=== PATIENT | female | born 1945 | race Caucasian/White ===

== ENCOUNTER 2017-04-11 08:57 | Outpatient (CLI) | payer MEDICARE | END 2017-04-11 08:58 | disposition home or self-care (01) | LOC: BICMAMMO 08:57 | PROVIDERS: ATTEND Family Medicine | DX: M81.0 Age-related osteoporosis without current pathological fracture (principal); R06.2 Wheezing; R04.2 Hemoptysis; R91.8 Other nonspecific abnormal finding of lung field | CPT/HCPCS: 71250; 77080 ==

== ENCOUNTER 2018-01-21 15:48 | Outpatient (CLI) | payer MEDICARE | END 2018-01-21 15:49 | disposition home or self-care (01) | LOC: BICMAMMO 15:48 | PROVIDERS: ATTEND Family Medicine | DX: Z12.31 Encounter for screening mammogram for malignant neoplasm of breast (principal) | CPT/HCPCS: 77063; 77067 ==

== ENCOUNTER 2019-01-11 16:39 | Observation (INO) | payer MEDICARE ==
[2019-01-11 17:27] LABS: #Basophils 0.1 thou/uL (0.0-0.2); #Eosinphils 0.3 thou/uL (0.0-0.7); #Lymphocytes 2.1 thou/uL (1.20-3.40); #Monocytes 0.7 thou/uL (0.11-0.59); #Neutrophils 6.9 thou/uL (1.40-6.50); %Lymphocytes 20.7 % (21.0-51.0); %Monocytes 6.8 % (0.0-10.0); %Neutrophils 68.6 % (42.0-75.0); Hemoglobin 14.7 g/dL (12.0-16.0); Mean Corpuscular HGB CONC 32.5 g/dL (32.0-36.0); Mean Corpuscular Hemoglobin 30.8 pg (27.0-31.0); Mean Corpuscular Volume 94.7 fL (78.0-98.0); Mean Platelet Volume 8.2 fL (7.4-10.4); Platelet Count 354 thou/uL (130-400); RBC Distribution Width 12.5 % (11.5-14.5); Red Blood Cell (RBC) Count 4.76 mill/uL (4.20-5.40); White Blood Cell (WBC) Count 10.1 thou/uL (4.8-10.8)
--- NOTE | 2019-01-11 17:28 | RAD ---
Exam: Chest one view HISTORY:Syncope Comparison: 09/28/2016 FINDINGS: Cardiac silhouette: Normal Aorta: Unremarkable Pulmonary vessels: Normal Costophrenic angles: Clear LUNGS: No masses or consolidation. Chronic changes along parenchyma. Pneumothorax: None Osseous abnormalities: None IMPRESSION: No acute cardiopulmonary process.
[2019-01-11 17:56] LABS: ALT (SGPT) 14 U/L (8-55); AST (SGOT) 18 U/L (5-34); Albumin 4.2 g/dL (3.4-4.8); Alkaline Phosphatase 105 U/L (40-110); Anion Gap 15 mmol/L (10-20); BUN (Urea Nitrogen) 15 mg/dL (9.8-20.1); Bilirubin, Total 0.4 mg/dL (0.2-1.2); CK (CPK) 69 U/L (29-168); Calc. Creatinine Clearance 0 mL/min (70-130); Calcium 9.7 mg/dL (7.8-10.44); Carbon Dioxide 24 mmol/L (23-31); Chloride 104 mmol/L (98-107); Estimated GFR-MDRD 63; Globulin 2.6 g/dL (2.4-3.5); Glucose 119 mg/dL (83-110); Potassium 3.7 mmol/L (3.5-5.1); Protein, Total 6.8 g/dL (6.0-8.3); Sodium 139 mmol/L (136-145)
[2019-01-11] MEDS ORDERED: Aspirin Chewable 81 MG TAB ONE (20:06)
[2019-01-11 20:56] LABS: Troponin I 0.017 ng/mL (< 0.028)
[2019-01-11 21:17] VITALS: BMI 34.4
[2019-01-11] MEDS ORDERED: Acetaminophen 325 MG TAB PO PRN (23:01)
[2019-01-11] MEDS ORDERED: cloNIDine 0.1 MG TAB PO PRN ×2 (23:01→23:06)
[2019-01-11] MEDS ORDERED: hydrALAZINE 20 MG/ML VIAL SLOW IVP PRN (23:01)
[2019-01-12] LABS: Troponin I 0.014 ng/mL (< 0.028)
--- NOTE | 2019-01-12 03:57 | HP ---
PRIMARY CARE PHYSICIAN: Dr. Lynn Pitts, but she says she recently retired. CHIEF COMPLAINT: Feeling dizzy and nauseated. HISTORY OF PRESENT ILLNESS: Ms. Wise is a very pleasant 73-year-old female who has a history of hypertension. She says that ever since October, her blood pressure has been "out of whack." She says that it has even been worse in the last few days. She says that she has noticed that she has been feeling nauseated and lightheaded and that her blood pressure is off the wall. She says that today it was high as 201/101. She says that she also woke up with her heart racing and she had been going to a local urgent care type clinics and says that she had been prescribed clonidine back in September. She says she has only had to use it about 4-6 times since then. She also noticed that she has been coughing a lot and that sometimes she coughs so hard that she is gagging and will throw up and because of these symptoms, she came to the ER for evaluation. She says that when she came to the ER, her blood pressure was initially high and that it took a while for it to come under control. In our records, her blood pressure was 149/107 and currently her blood pressure is 126/74, and she feels fine. She says that she has been on the lisinopril for at least 10 years and has not had a medication change recently. She also noted some blurred vision off and on, but otherwise no other complaints. REVIEW OF SYSTEMS: All systems were reviewed and are negative except for that mentioned in the History of Present Illness. PAST MEDICAL HISTORY: Significant for hypertension and rheumatoid arthritis. PAST SURGICAL HISTORY: She has had carpal tunnel surgery; bilateral nodules removed from her elbows, it sounds like rheumatoid nodules. She also has had a tonsillectomy. ALLERGIES: NO KNOWN DRUG ALLERGIES. SOCIAL HISTORY: She is a nonsmoker and she occasionally drinks some wine. 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 She is . She does not have any children, and she would like to be a do not resuscitate. FAMILY HISTORY: Her mother had heart disease and ovarian cancer, brother had diabetes and heart disease, and a sister had lymphoma. CURRENT MEDICATIONS: Include; 1. Zaleplon or Sonata 10 mg at bedtime. 2. Lisinopril/hydrochlorothiazide 20/12.5 once daily. 3. Vascepa 1 capsule twice a day. 4. Drisdol 1 capsule every 7 days. 5. Clonidine 0.1 at bedtime as needed. 6. Orencia 250 mg IV as directed. PHYSICAL EXAMINATION: GENERAL: She is alert and oriented. She appears to be in no acute distress. She is well developed and well nourished. She appears younger than her stated age. VITAL SIGNS: Blood pressure was 126/74, heart rate 76, respiratory rate of 15, temperature is 98.4, O2 sats 95% on room air. HEENT: Pupils are equal, round, and reactive. Extraocular muscles are intact. Sclerae anicteric. Throat; no erythema, no exudates. NECK: No adenopathy, no bruits. LUNGS: Clear to auscultation. There was no wheezing, no rales, no rhonchi. CARDIOVASCULAR: She had a normal S1, S2. I did not appreciate an S3 or S4. No murmurs, clicks, or rubs. ABDOMEN: Obese. It is soft, nontender, and nondistended. Positive for bowel sounds. No rebound. No guarding. No organomegaly. EXTREMITIES: There is no clubbing or cyanosis. No edema. No joint effusions or any erythema or warmth. NEUROLOGIC: Essentially nonfocal. SKIN AND INTEGUMENT: No skin changes, no rash; however, on her left lower extremity, she did have a fairly large almost golf ball-sized roundish mass on the dorsum of her foot and she does have some hammertoe deformities as well as bilateral bunion deformities on the feet. LABORATORY DATA AND IMAGING: Her chemistries are essentially negative with the sodium of 139, potassium 3.7, chloride is 104, CO2 is 24, BUN of 15, creatinine 0.88, and glucose is 119. Troponin is 0.013. White blood cell count is 10.1, hemoglobin 14.7, hematocrit is 45.1, and platelet count is 354. She had a chest x-ray in which there was no evidence of any airspace disease and heart size was normal. On her EKG, it was sinus rhythm, the rate was 93. She had a biphasic T-wave in V2 and some poor R-wave progression, but otherwise no other abnormalities. ASSESSMENT: 1. This is a pleasant 73-year-old female who presents to the emergency room with multiple complaints, all seemingly associated with her blood pressure medications. She has this cough which become so severe that she has nausea and gets choked. I suspect this could be related to the BEBETO inhibitor, and it appears as if she is not getting adequate antihypertensive effect. For this reason, we will go ahead and discontinue the lisinopril and place her on Benicar, olmesartan in its place. She does have a diuretic with her lisinopril and therefore we will continue the diuretic use as well and I suspect that if she is stable during most of the day tomorrow, then she could be discharged home and have close followup with Dr. Morrison whom she had already scheduled an appointment with. 2. Rheumatoid arthritis. This appears to be clinically stable and continue her medications as had been outlined by Dr. Griffith. Job ID: [id number]
[2019-01-12] MEDS ORDERED: Hydrochlorothiazide 25 MG TAB PO SCH (09:00)
[2019-01-12] MEDS ORDERED: Losartan 25 MG TAB PO SCH (09:00)
[2019-01-12] MEDS ORDERED: ICOSAPENT ETHYL PO SCH (09:00)
[2019-01-12 11:57] VITALS: BP 127/71; TEMP 98.4
--- NOTE | 2019-01-12 21:01 | DIS ---
DATE OF ADMISSION: 01/11/2019 DATE OF DISCHARGE: 01/12/2019 DISCHARGE DISPOSITION: Home. FOLLOWUP: Follow up with new PCP, Dr. Jennifer Durand, in 1 to 2 weeks. Please note, the patient has seen Dr. Pitst in the past, who recently retired. CODE STATUS: Do not resuscitate. DISCHARGE MEDICATION: Lisinopril/hydrochlorothiazide was changed to Benicar HCT 20/12.5 daily. All other home medications were left unchanged. DIAGNOSTIC TESTS: Creatinine 0.88. Troponin was negative. Chest x-ray was negative for infiltrate. BRIEF HOSPITAL COURSE: The patient is a 73-year-old female with hypertension, presented to the hospital with generalized weakness, dizziness along with nausea. Her blood pressure at home was 201/101. She also has been coughing a lot recently. Please refer to the history and physical dated December,, by Dr. Comer for further details. The patient was admitted to the hospital with a diagnosis of generalized weakness. According to the admitting PCP, her symptoms were probably secondary to BEBETO inhibitor induced cough. Lisinopril has been changed to Benicar HCT. She has a followup with Dr. Morrison in next 1 to 2 weeks. She appears stable for discharge. She denies any dizziness, nausea, or lightheadedness at this time. Her blood pressure remains stable. FINAL DIAGNOSES: 1. Generalized weakness, multifactorial. 2. Hypertensive urgency on admission. 3. BEBETO inhibitor induced cough. 4. Rheumatoid arthritis. 5. Chronic kidney disease stage 2. 6. Obesity with a body mass index of 34.5. PLAN: Plan of care was discussed with the patient in detail. She stated understanding. Job ID: [id number]
[2019-01-18] MEDS ORDERED: Ergocalciferol 1.25 MG(50,000 UNITS) CAP PO SCH (09:00)
== END 2019-01-12 15:42 | disposition home or self-care (01) ==
LOC: SCSER 16:39 → 2SW 18:10
PROVIDERS: ADMIT Internal Medicine; ATTEND Internal Medicine
DX: R53.1 Weakness (principal); R42 Dizziness and giddiness; R11.0 Nausea; I16.1 Hypertensive emergency; I12.9 Hypertensive chronic kidney disease with stage 1 through stage 4 chronic kidney disease, or unspecified chronic kidney disease; N18.2 Chronic kidney disease, stage 2 (mild); M06.9 Rheumatoid arthritis, unspecified; R05 Cough; T46.4X5A Adverse effect of angiotensin-converting-enzyme inhibitors, initial encounter; E66.9 Obesity, unspecified; Z68.34 Body mass index [BMI] 34.0-34.9, adult; Z66 Do not resuscitate; Z79.899 Other long term (current) drug therapy
CPT/HCPCS: 36415; 71045; 80053; 82550; 84484; 85025; 93005; G0378

== ENCOUNTER 2019-05-25 11:55 | Outpatient (CLI) | payer MEDICARE ==
--- NOTE | 2019-05-25 12:34 | RAD ---
EXAM: CHEST TWO VIEWS 05/25/2019 12:30 PM HISTORY: Cough COMPARISON: May 16, 2019 FINDINGS: Lungs: There is new airspace consolidation the left lower lobe. Chronic lung changes otherwise are s table. Heart: Mild cardiomegaly is stable Pulmonary Vessels: Normal. Costophrenic Angles: Clear. Pneumothorax: None. Osseous Structures: Intact. Additional Findings: None. IMPRESSION: Left lower lobe airspace consolidation suspicious for pneumonia. Recommend radiographic follow to res olution.
== END 2019-05-25 11:56 | disposition home or self-care (01) ==
LOC: BICRAD 11:55
DX: R05 Cough (principal); R50.9 Fever, unspecified; R06.02 Shortness of breath; D84.9 Immunodeficiency, unspecified
CPT/HCPCS: 36415; 71046; 80053; 85025

== ENCOUNTER 2019-06-02 11:09 | Outpatient (CLI) | payer MEDICARE ==
--- NOTE | 2019-06-02 11:27 | RAD ---
EXAM: Chest PA and lateral: HISTORY: Patient has fluid 3 1/2 weeks ago. Cough. COMPARISON: 05/25/2019 FINDINGS: Heart: Normal cardiac silhouette Aorta: There is sclerosis of the aortic knob Pulmonary vessels: Normal Costophrenic angles: Costophrenic angles are clear. Lungs: Obscuration left hemidiaphragm due to left lower lobe infiltrate or atelectasis. Additional ch ronic changes of the lung parenchyma. Pneumothorax: No pneumothorax Osseous structures: No osseous abnormalities IMPRESSION: Obscuration left hemidiaphragm due to atelectasis or infiltrate. Continued surveillance is kourtney [facility]
== END 2019-06-02 11:10 | disposition home or self-care (01) ==
LOC: BICRAD 11:09
DX: J18.9 Pneumonia, unspecified organism (principal); D84.9 Immunodeficiency, unspecified; R50.9 Fever, unspecified; R05 Cough; R06.02 Shortness of breath; J98.6 Disorders of diaphragm
CPT/HCPCS: 36415; 71046; 80053; 85025

== ENCOUNTER 2019-06-09 10:22 | Outpatient (CLI) | payer MEDICARE ==
--- NOTE | 2019-06-09 10:34 | RAD ---
EXAM: Two views chest PROVIDED CLINICAL HISTORY: Cough. Follow-up pneumonia. COMPARISON: 06/02/2019 FINDINGS: Cardiac silhouette and pulmonary vasculature are within normal limits. Linear scarring is again seen at the left lung base with the nodular density at the left lung base related to calcified granuloma which was seen on prior CT thorax on 04/11/2017 as well as on prior chest x-ray. No consolid ation or pleural fluid is seen. Chest is overall stable compared to prior exam. IMPRESSION: 1. No acute cardiopulmonary process. 2. Chronic changes left lung base.
== END 2019-06-09 10:23 | disposition home or self-care (01) ==
LOC: BICRAD 10:22
DX: J18.9 Pneumonia, unspecified organism (principal); R05 Cough; D84.9 Immunodeficiency, unspecified
CPT/HCPCS: 71046

== ENCOUNTER 2020-01-27 12:29 | Outpatient (CLI) | payer MEDICARE ==
--- NOTE | 2020-01-27 13:16 | RAD ---
XR Knee Rt 2 View HISTORY: Bilateral primary osteoarthritis of knee FINDINGS: No fracture or dislocation is identified. Tricompartmental osteophyte formation and joint space narro wing is present. Chondrocalcinosis is seen. IMPRESSION: Right knee osteoarthritis
--- NOTE | 2020-01-27 13:17 | RAD ---
XR Knee Lt 2 View HISTORY: Bilateral primary osteoarthritis of knee FINDINGS: No fracture or dislocation is identified.Tricompartmental osteophyte formation and joint space narrow ing is present. Chondrocalcinosis is seen. IMPRESSION: Left knee osteoarthritis
== END 2020-01-27 12:30 | disposition home or self-care (01) ==
LOC: BICRAD 12:29
PROVIDERS: ATTEND Internal Medicine Rheumatology
DX: M17.0 Bilateral primary osteoarthritis of knee (principal)

== ENCOUNTER 2020-04-04 14:10 | Outpatient (CLI) | payer MEDICARE ==
--- NOTE | 2020-04-04 15:01 | MMO ---
Bilateral MAMMO Bilat Screen [facility]. CLINICAL HISTORY: Patient is 74 years old and is seen for screening. The patient has no family history of breast cancer. The patient has no personal history of cancer. VIEWS: The views performed were: bilateral craniocaudal with tomosynthesis and bilateral mediolateral oblique with tomosynthesis. FILMS COMPARED: The present examination has been compared to prior imaging studies performed at [facility] on 05/03/2014, 06/22/2015, 09/28/2016 and 01/21/2018. This study has been interpreted with the assistance of computer-aided detection. MAMMOGRAM FINDINGS: There are scattered fibroglandular densities. There are no suspicious masses, suspicious calcifications, or new areas of architectural distortion. IMPRESSION: THERE IS NO MAMMOGRAPHIC EVIDENCE OF MALIGNANCY. A ROUTINE FOLLOW-UP MAMMOGRAM IN 1 YEAR IS RECOMMENDED. THE RESULTS OF THIS EXAM WERE SENT TO THE PATIENT. ACR BI-RADS Category 1 - Negative MAMMOGRAPHY NOTE: 1. A negative mammogram report should not delay a biopsy if a dominant of clinically suspicious mass is present. 2. Approximately 10% to 15% of breast cancers are not detected by mammography. 3. Adenosis and dense breasts may obscure an underlying neoplasm. Reported by: CLARA BAUMANN MD Electonically Signed: [id number]
== END 2020-04-04 14:11 | disposition home or self-care (01) ==
LOC: BICMAMMO 14:10
DX: Z12.31 Encounter for screening mammogram for malignant neoplasm of breast (principal)
CPT/HCPCS: 77063; 77067

== ENCOUNTER 2020-07-07 12:29 | Outpatient (CLI) | payer OTHER | END 2020-07-07 12:30 | disposition home or self-care (01) | LOC: DTY/OP 12:29 | DX: Z71.3 Dietary counseling and surveillance (principal); Z68.29 Body mass index [BMI] 29.0-29.9, adult; M06.9 Rheumatoid arthritis, unspecified; I10 Essential (primary) hypertension; M06.372 Rheumatoid nodule, left ankle and foot | CPT/HCPCS: 97802 ==

== ENCOUNTER 2020-08-02 13:52 | Outpatient (CLI) | payer MEDICARE | END 2020-08-02 13:53 | disposition home or self-care (01) | LOC: BICMAMMO 13:52 | PROVIDERS: ATTEND Internal Medicine Rheumatology | DX: M81.0 Age-related osteoporosis without current pathological fracture (principal); M85.89 Other specified disorders of bone density and structure, multiple sites | CPT/HCPCS: 77080 ==

== ENCOUNTER 2021-02-23 08:44 | Outpatient (CLI) | payer MEDICARE | END 2021-02-23 08:45 | disposition home or self-care (01) | LOC: BICULT 08:44 | PROVIDERS: ATTEND Obstetrics & Gynecology Gynecology | DX: N85.2 Hypertrophy of uterus (principal); D25.9 Leiomyoma of uterus, unspecified | CPT/HCPCS: 76856 ==

== ENCOUNTER 2022-05-02 10:43 | Outpatient (CLI) | payer MEDICARE, OTHER | END 2022-05-02 10:44 | disposition home or self-care (01) | LOC: SCSRAD 10:43 | PROVIDERS: ATTEND Internal Medicine Rheumatology | DX: J41.1 Mucopurulent chronic bronchitis (principal) | CPT/HCPCS: 71046 ==

== ENCOUNTER 2022-07-05 09:34 | Outpatient (CLI) | payer MEDICARE, OTHER | END 2022-07-05 09:35 | disposition home or self-care (01) | LOC: RAD 09:34 | PROVIDERS: ATTEND Internal Medicine Critical Care Medicine | DX: R06.00 Dyspnea, unspecified (principal) | CPT/HCPCS: 71046 ==

== ENCOUNTER 2023-02-01 14:08 | Outpatient (CLI) | payer MEDICARE, OTHER | END 2023-02-01 14:09 | disposition home or self-care (01) | LOC: BICMAMMO 14:08 | PROVIDERS: ATTEND Internal Medicine Rheumatology | DX: M81.0 Age-related osteoporosis without current pathological fracture (principal); M85.80 Other specified disorders of bone density and structure, unspecified site | CPT/HCPCS: 77080 ==

== ENCOUNTER 2023-02-22 08:17 | Outpatient (CLI) | payer MEDICARE | END 2023-02-22 08:18 | disposition home or self-care (01) | LOC: BICULT 08:17 | PROVIDERS: ATTEND Internal Medicine Rheumatology | DX: N28.9 Disorder of kidney and ureter, unspecified (principal); N28.1 Cyst of kidney, acquired; R93.41 Abnormal radiologic findings on diagnostic imaging of renal pelvis, ureter, or bladder | CPT/HCPCS: 76770 ==

== ENCOUNTER 2024-11-25 08:02 | Outpatient (CLI) | payer MEDICARE | END 2024-11-25 08:03 | disposition home or self-care (01) | LOC: SCSBT 08:02 | PROVIDERS: ATTEND Internal Medicine Rheumatology | DX: M81.0 Age-related osteoporosis without current pathological fracture (principal); M85.89 Other specified disorders of bone density and structure, multiple sites | CPT/HCPCS: 77080 ==